=== PATIENT | female | born 1940 | race Caucasian/White ===

== ENCOUNTER → 2017-08-12 | Outpatient (CLI) | payer MEDICARE | END | disposition home or self-care (01) | LOC: SHCH 13:20 | PROVIDERS: ATTEND Internal Medicine Cardiovascular Disease | DX: I50.9 Heart failure, unspecified (principal); I42.9 Cardiomyopathy, unspecified | CPT/HCPCS: 93306 ==

== ENCOUNTER → 2017-08-29 | Outpatient (CLI) | payer OTHER | END | disposition home or self-care (01) | LOC: OIH 14:13 | PROVIDERS: ATTEND Internal Medicine Cardiovascular Disease | DX: Z13.6 Encounter for screening for cardiovascular disorders (principal) | CPT/HCPCS: 75571 ==

== ENCOUNTER → 2018-05-27 | Outpatient (CLI) | payer MEDICARE ==
[~2018-05-27] MED LIST: IOHEXOL-350 75 ML VIAL IV ONE
== END | disposition home or self-care (01) ==
LOC: RAH 05-14 09:56
PROVIDERS: ATTEND Family Medicine
DX: R06.02 Shortness of breath (principal)
CPT/HCPCS: 71275; Q9967

== ENCOUNTER → 2019-01-19 | Outpatient (CLI) | payer MEDICARE | END | disposition home or self-care (01) | LOC: SHCH 08:19 | PROVIDERS: ATTEND Internal Medicine Cardiovascular Disease | DX: I08.3 Combined rheumatic disorders of mitral, aortic and tricuspid valves (principal) | CPT/HCPCS: 93306 ==

== ENCOUNTER 2021-05-31 09:00 | Inpatient (IN) | payer MEDICARE ==
[~2021-05-31] VITALS: Ht 160 cm; Wt 78.3 kg
[2021-05-31 10:56] LABS: APPEARANCE,URINE Clear (CLEAR); BILIRUBIN,URINE Negative (NEGATIVE); COLOR,URINE Yellow (YELLOW); GLUCOSE, URINE (UA) Negative (NEGATIVE); KETONES,URINE Negative (NEGATIVE); LEUKOCYTE ESTERASE ,URINE Moderate (NEGATIVE); NITRATE,URINE Negative (NEGATIVE); OCCULT BLOOD,URINE Nonhemolyzed Trace (NEGATIVE); PROTEIN,URINE Negative (NEGATIVE)
[2021-05-31 11:01] LABS: BASOPHILS % (AUTO) 0.7 % (0.0-5.0); EOSINOPHILS % (AUTO) 2.2 % (0.0-8.0); HEMATOCRIT 34.5 % (36-48); LYMPHOCYTES % (AUTO) 30.7 % (21.0-51.0); MEAN CORPUSCULAR HEMOGLOBIN 30.7 pg (27.0-33.0); MEAN CORPUSCULAR HGB CONC 33.3 g/dL (32.0-36.0); MEAN CORPUSCULAR VOLUME 92.2 fL (79-99); MONOCYTES % (AUTO) 9.8 % (3.0-13.0); NEUTROPHILS % (AUTO) 55.1 % (40.0-77.0); PLATELET COUNT (AUTO) 241 K/uL (130-400); RED BLOOD CELL COUNT(AUTO) 3.74 MIL/uL (4.00-5.50); RED CELL DISTRIBUTION WIDTH 12.7 % (11.0-15.5); WHITE BLOOD COUNT (AUTO) 4.6 K/uL (4.8-10.8)
[2021-05-31 11:01] LABS: BACTERIA,URINE Rare /HPF (None Seen); RBC,URINE 0-1 /HPF (0-1); SQUAMOUS EPITHELIAL CELL,UR Rare /HPF (0-2)
[2021-05-31 11:13] LABS: CREATININE 1.4 mg/dL (0.5-1.5); POTASSIUM 4.2 mmol/L (3.5-5.1)
[2021-05-31 11:24] LABS: INR 1.04 (0.85-1.15); PROTHROMBIN TIME 11.3 SEC (9.6-11.6)
[2021-06-04] VITALS (25 sets, daily range): BP systolic 128–168; BP diastolic 60–89
[2021-06-04] MEDS: CEFAZOLIN SODIUM 2 GM VIAL IV SCH ×3 (05:00→18:13)
[2021-06-04] MEDS ORDERED: CEFAZOLIN SODIUM 1 GM VIAL ONE ×2 (07:43→08:32)
[2021-06-04] MEDS ORDERED: TRANEXAMIC ACID 1000MG/10ML ONE (07:43)
[2021-06-04] MEDS ORDERED: ASCO1CAP5 PO (08:09)
[2021-06-04] MEDS ORDERED: ROTI1PAT10 TD (08:09)
[2021-06-04] MEDS ORDERED: DOCU-133 PO (08:09)
[2021-06-04] MEDS ORDERED: DULO30CA52 PO (08:09)
[2021-06-04] MEDS ORDERED: CYAN50009 PO (08:09)
[2021-06-04] MEDS ORDERED: HYDR50TA PO (08:09)
[2021-06-04] MEDS ORDERED: FISH1CAP50 PO (08:09)
[2021-06-04] MEDS ORDERED: LOSA100T58 PO (08:09)
[2021-06-04] MEDS ORDERED: CHOL100046 PO (08:09)
[2021-06-04] MEDS ORDERED: LEVO75CA5 PO (08:09)
[2021-06-04] MEDS ORDERED: ESOM20CA39 PO (08:09)
[2021-06-04] MEDS ORDERED: SPIR25TA6 PO (08:09)
[2021-06-04] MEDS ORDERED: APIX5TAB PO (08:11)
[2021-06-04] MEDS ORDERED: LACTATED RINGERS 1000ML 1,000 ML IV ONE (08:32)
[2021-06-04] MEDS ORDERED: ACETAMINOPHEN 500 MG TABLET ONE (08:35)
[2021-06-04] MEDS ORDERED: CELECOXIB 200 MG CAP ONE ×2 (08:36→19:13)
[2021-06-04] MEDS ORDERED: OXYCODONE HCL 10 MG TAB.SR.12H PO ONE (09:04)
[2021-06-04] MEDS ORDERED: LIDOCAINE PF 100MG/5ML (2%) SYRINGE 5ML ONE (09:15)
[2021-06-04] MEDS ORDERED: PROPOFOL 10 MG/ML 20ML VIAL IV ONE (09:15)
[2021-06-04] MEDS ORDERED: SUCCINYLCHOLINE CHLORIDE 20 MG/ML 10 ML VIAL ONE (09:15)
[2021-06-04] MEDS ORDERED: MIDAZOLAM HCL 1 MG/ML 2ML VIAL ONE (09:15)
[2021-06-04] MEDS ORDERED: ROCURONIUM 10MG/1ML SYR 10 MG/ML ML ONE (09:22)
[2021-06-04] MEDS ORDERED: NEOSTIGMINE 5MG/5ML SYR IV ONE (11:16)
[2021-06-04] MEDS ORDERED: ONDANSETRON 4MG INJ ONE (11:16)
[2021-06-04] MEDS ORDERED: GLYCOPYRROLATE 1 MG/5 ML SYRINGE ONE (11:16)
[2021-06-04] MEDS ORDERED: LIDOCAINE HCL-MPF 1% 2ML VIAL IV PRN (11:30)
[2021-06-04] MEDS ORDERED: TEMAZEPAM 15 MG CAPSULE PO PRN (11:30)
[2021-06-04] MEDS ORDERED: OXYCODONE HCL 5 MG TAB PO PRN (11:30)
[2021-06-04] MEDS: ACETAMINOPHEN 500 MG TABLET PO SCH ×2 (11:30→20:05)
[2021-06-04] MEDS ORDERED: FERROUS FUMARATE 324 MG TABLET PO PRN (11:30)
[2021-06-04] MEDS ORDERED: DiphenhydrAMINE HCL 50 MG/ML VIAL IVP PRN (11:30)
[2021-06-04] MEDS ORDERED: CALCIUM CARB 500MG PO PRN (11:30)
[2021-06-04] MEDS ORDERED: 0.9%NACL 1000ML 1,000 ML IV SCH (11:30)
[2021-06-04] MEDS ORDERED: POTASSIUM CHLORIDE 10% ELIXIR 20 MEQ/15 ML UDCUP PO PRN (11:30)
[2021-06-04] MEDS ORDERED: KCL 20 MEQ ERTAB PO PRN (11:30)
[2021-06-04] MEDS ORDERED: TRAMADOL HCL 50 MG TABLET PO PRN (11:30)
[2021-06-04] MEDS ORDERED: POTASSIUM CHLORIDE 20MEQ/100ML 100 ML IV PRN (11:30)
[2021-06-04] MEDS ORDERED: FENTANYL CITRATE PF 50 MCG/1 ML 2ML VIAL ONE (11:54)
[2021-06-04] MEDS ORDERED: MEPERIDINE-PF 25 MG/ML SYG ONE ×2 (12:31→12:43)
[2021-06-04] MEDS: OXYCODONE HCL 5 MG TAB PO PRN (13:46)
[2021-06-04] MEDS: CEFAZOLIN SODIUM 1 GM VIAL IVP SCH (16:42)
[2021-06-04] MEDS ORDERED: SULFAMETHOX-TMP DS 800/160 TAB ONE (19:13)
[2021-06-04] MEDS ORDERED: DULOXETINE HCL 30 MG CAP ONE (19:13)
[2021-06-04] MEDS ORDERED: PREGABALIN 25 MG CAP ONE (19:14)
[2021-06-04] MEDS ORDERED: FISH OIL 1000 MG/CAP ONE (19:14)
[2021-06-04] MEDS ORDERED: DOCUSATE SODIUM 100 MG CAP PO ONE (19:14)
[2021-06-04] MEDS: DOCUSATE SODIUM 100 MG CAP PO SCH (20:04)
[2021-06-04] MEDS: SULFAMETHOX-TMP DS 800/160 TAB PO SCH (20:04)
[2021-06-04] MEDS: PREGABALIN 25 MG CAP PO SCH (20:04)
[2021-06-04] MEDS: CELECOXIB 200 MG CAP PO SCH (20:05)
[2021-06-04] MEDS: FISH OIL 1000 MG/CAP PO SCH (20:05)
[2021-06-04] MEDS: DULOXETINE HCL 30 MG CAP PO SCH (20:05)
[2021-06-04] MEDS ORDERED: APIXABAN 5 MG TABLET PO SCH (21:00)
[2021-06-05] MEDS: OXYCODONE HCL 5 MG TAB PO PRN ×5 (00:26→20:07)
[2021-06-05] MEDS: CEFAZOLIN SODIUM 1 GM VIAL IVP SCH (00:26)
[2021-06-05] MEDS ORDERED: CEFAZOLIN SODIUM 1 GM VIAL ONE (02:54)
[2021-06-05] MEDS: ACETAMINOPHEN 500 MG TABLET PO SCH ×3 (03:46→20:05)
[2021-06-05 04:00] VITALS: BP 120/61
[2021-06-05 06:01] LABS: HEMATOCRIT 31.4 % (36-48); MEAN CORPUSCULAR HEMOGLOBIN 30.3 pg (27.0-33.0); MEAN CORPUSCULAR HGB CONC 31.8 g/dL (32.0-36.0); MEAN CORPUSCULAR VOLUME 95.2 fL (79-99); RED BLOOD CELL COUNT(AUTO) 3.3 MIL/uL (4.00-5.50); WHITE BLOOD COUNT (AUTO) 7.6 K/uL (4.8-10.8)
[2021-06-05] MEDS: LEVOTHYROXINE 75 MCG TABLET PO SCH (06:07)
[2021-06-05 06:14] LABS: CREATININE 1.6 mg/dL (0.5-1.5); POTASSIUM 4.3 mmol/L (3.5-5.1)
[2021-06-05 07:25] VITALS: BP 120/61
[2021-06-05] MEDS: POLYETHYLENE GLYCOL 3350 17 GM POWD.PACK PO SCH (08:06)
[2021-06-05] MEDS: HYDROCHLOROTHIAZIDE 25 MG TABLET PO SCH (08:07)
[2021-06-05] MEDS: CELECOXIB 200 MG CAP PO SCH ×2 (08:07→20:05)
[2021-06-05] MEDS: CYANOCOBALAMIN (VITAMIN B-12) 1,000 MCG TABLET PO SCH (08:08)
[2021-06-05] MEDS: PREGABALIN 25 MG CAP PO SCH ×2 (08:08→20:07)
[2021-06-05] MEDS: SULFAMETHOX-TMP DS 800/160 TAB PO SCH ×2 (08:09→20:07)
[2021-06-05] MEDS: LOSARTAN 100 MG TABLET PO SCH (08:09)
[2021-06-05] MEDS: APIXABAN 5 MG TABLET PO SCH (08:09)
[2021-06-05] MEDS: PANTOPRAZOLE 40 MG TAB DR PO SCH (08:09)
[2021-06-05] MEDS: SPIRONOLACTONE 25 MG TAB PO SCH (08:09)
[2021-06-05] MEDS: **HM**(Cholecalciferol (Vitamin D3) (Vitamin D3) 50 MCG PO SCH (08:42)
[2021-06-05] MEDS: ASCORBIC ACID PO SCH (08:42)
[2021-06-05] MEDS: COLLAGEN HYDR PO SCH (08:42)
[2021-06-05] MEDS: ROTIGOTINE TD SCH (08:42)
[2021-06-05 11:00] VITALS: BP 134/59
[2021-06-05] MEDS: ONDANSETRON 4MG INJ IVP PRN ×2 (11:38→15:21)
[2021-06-05 15:30] VITALS: BP 150/68
[2021-06-05] MEDS ORDERED: PHENAZOPYRIDINE HCL 200 MG TABLET PO PRN (16:00)
[2021-06-05 20:00] VITALS: BP 174/72
[2021-06-05] MEDS: FISH OIL 1000 MG/CAP PO SCH (20:05)
[2021-06-05] MEDS: DOCUSATE SODIUM 100 MG CAP PO SCH (20:05)
[2021-06-05] MEDS: DULOXETINE HCL 30 MG CAP PO SCH (20:07)
[2021-06-06] VITALS: BP 135/56
[2021-06-06] MEDS: OXYCODONE HCL 5 MG TAB PO PRN ×4 (00:08→17:19)
[2021-06-06] MEDS: CEFAZOLIN SODIUM 2 GM VIAL IV SCH (00:37)
[2021-06-06] MEDS: ACETAMINOPHEN 500 MG TABLET PO SCH ×3 (03:30→12:45)
[2021-06-06] MEDS: LEVOTHYROXINE 75 MCG TABLET PO SCH (05:20)
[2021-06-06 05:35] VITALS: BP 168/66
[2021-06-06 08:08] VITALS: BP 129/64
[2021-06-06] MEDS: PANTOPRAZOLE 40 MG TAB DR PO SCH (08:51)
[2021-06-06] MEDS: POLYETHYLENE GLYCOL 3350 17 GM POWD.PACK PO SCH (08:51)
[2021-06-06] MEDS: CELECOXIB 200 MG CAP PO SCH (08:51)
[2021-06-06] MEDS: APIXABAN 5 MG TABLET PO SCH (08:51)
[2021-06-06] MEDS: SULFAMETHOX-TMP DS 800/160 TAB PO SCH (08:52)
[2021-06-06] MEDS: PREGABALIN 25 MG CAP PO SCH (08:52)
[2021-06-06] MEDS: CYANOCOBALAMIN (VITAMIN B-12) 1,000 MCG TABLET PO SCH (08:52)
[2021-06-06] MEDS ORDERED: HYDR-4060 PO (08:56)
[2021-06-06] MEDS: COLLAGEN HYDR PO SCH (08:57)
[2021-06-06] MEDS: ASCORBIC ACID PO SCH (08:57)
[2021-06-06] MEDS: **HM**(Cholecalciferol (Vitamin D3) (Vitamin D3) 50 MCG PO SCH (08:57)
[2021-06-06] MEDS: HYDROCHLOROTHIAZIDE 25 MG TABLET PO SCH (09:00)
[2021-06-06] MEDS: LOSARTAN 100 MG TABLET PO SCH (09:00)
[2021-06-06] MEDS: SPIRONOLACTONE 25 MG TAB PO SCH (09:00)
[2021-06-06] MEDS: ROTIGOTINE TD SCH (09:00)
[2021-06-06 10:57] VITALS: BP 129/77
[2021-06-06 15:58] VITALS: BP 129/76
[2021-06-06] MEDS ORDERED: HYDR-4068 PO (17:06)
[2021-06-06] MEDS ORDERED: Sulfamethox-Tmp Ds 800/160 Tab PO (17:16)
== END 2021-06-06 19:24 | disposition home health service (06) | DRG 470 ==
LOC: DAHIP 06-04 07:23 → OBSVTOIN 06-04 07:23 → 4CH 06-04 13:27 → 3BH 06-05 05:22
PROVIDERS: ADMIT Orthopaedic Surgery; ATTEND Orthopaedic Surgery
PROC: 3E0T33Z Introduction of Anti-inflammatory into Peripheral Nerves and Plexi, Percutaneous Approach (ICD-10-PCS; 2021-06-04)
PROC: 0SRC0J9 Replacement of Right Knee Joint with Synthetic Substitute, Cemented, Open Approach (ICD-10-PCS; principal; 2021-06-04 09:35)
PROC: 3E0T3BZ Introduction of Anesthetic Agent into Peripheral Nerves and Plexi, Percutaneous Approach (ICD-10-PCS; 2021-06-04 09:35)
DX: M17.11 Unilateral primary osteoarthritis, right knee (principal); N39.0 Urinary tract infection, site not specified; I47.1 Supraventricular tachycardia; Z20.822 Contact with and (suspected) exposure to COVID-19; I25.10 Atherosclerotic heart disease of native coronary artery without angina pectoris; E78.5 Hyperlipidemia, unspecified; E03.9 Hypothyroidism, unspecified; G25.81 Restless legs syndrome; I10 Essential (primary) hypertension; G89.29 Other chronic pain; E11.9 Type 2 diabetes mellitus without complications; I48.0 Paroxysmal atrial fibrillation; K21.9 Gastro-esophageal reflux disease without esophagitis; E66.9 Obesity, unspecified; Z68.30 Body mass index [BMI] 30.0-30.9, adult; Q96.9 Turner's syndrome, unspecified; Z98.82 Breast implant status; Z85.3 Personal history of malignant neoplasm of breast; Z79.01 Long term (current) use of anticoagulants; Z90.710 Acquired absence of both cervix and uterus; Z88.8 Allergy status to other drugs, medicaments and biological substances; Z82.3 Family history of stroke; Z80.42 Family history of malignant neoplasm of prostate
CPT/HCPCS: 36415; 80048; 81001; 85025; 85027; 85610; 87077; 87088; 87186; 87635; 87641; 93005; 97039; G0378; J0330; J0690; J2001; J2175; J2250; J2405; J2704; J2710; J3010; J3490; J7120

== ENCOUNTER → 2021-06-20 | Outpatient (CLI) | payer MEDICARE ==
[~2021-06-20] MED LIST changes: +ALBUTEROL 0.083% 2.5 MG/3 ML INH IH ONE; +APIX5TAB PO; +ASCO1CAP5 PO; +CHOL100046 PO; +CYAN50009 PO; +DOCU-133 PO; +DULO30CA52 PO; +ESOM20CA39 PO; +FISH1CAP50 PO; +HYDR-4068 PO; +HYDR50TA PO; -IOHEXOL-350 75 ML VIAL IV ONE; +LEVO75CA5 PO; +LOSA100T58 PO; +ROTI1PAT10 TD; +SPIR25TA6 PO; +Sulfamethox-Tmp Ds 800/160 Tab PO
== END | disposition home or self-care (01) ==
LOC: RESP 13:25
PROVIDERS: ATTEND Internal Medicine Cardiovascular Disease
DX: R06.00 Dyspnea, unspecified (principal)
CPT/HCPCS: 94060; 94727; 94729

== ENCOUNTER → 2022-01-02 | Outpatient (CLI) | payer MEDICARE ==
[~2022-01-02] MED LIST changes: -ALBUTEROL 0.083% 2.5 MG/3 ML INH IH ONE
== END | disposition home or self-care (01) ==
LOC: RAH 10:55
PROVIDERS: ATTEND Student in an Organized Health Care Education/Training Program
DX: M51.36 Other intervertebral disc degeneration, lumbar region (principal); M54.50 Low back pain, unspecified
CPT/HCPCS: 72148

== ENCOUNTER → 2022-06-05 | Outpatient (CLI) | payer MEDICARE | END | disposition home or self-care (01) | LOC: SLP 21:48 | PROVIDERS: ATTEND Internal Medicine Cardiovascular Disease | DX: G47.33 Obstructive sleep apnea (adult) (pediatric) (principal) | CPT/HCPCS: 95810 ==

== ENCOUNTER → 2022-07-29 | Outpatient (CLI) | payer MEDICARE ==
[~2022-07-29] MED LIST changes: +CHOL125C7 PO; +CYAN500T46 PO; +MAGN250T10 PO
== END | disposition home or self-care (01) ==
LOC: RAH 14:03
PROVIDERS: ATTEND Student in an Organized Health Care Education/Training Program
DX: S83.242A Other tear of medial meniscus, current injury, left knee, initial encounter (principal); S83.512A Sprain of anterior cruciate ligament of left knee, initial encounter; M71.22 Synovial cyst of popliteal space [Baker], left knee; M25.462 Effusion, left knee; X58.XXXA Exposure to other specified factors, initial encounter; Y93.89 Activity, other specified; Y92.89 Other specified places as the place of occurrence of the external cause; Y99.8 Other external cause status
CPT/HCPCS: 73721

== ENCOUNTER → 2022-10-08 | Outpatient (CLI) | payer MEDICARE ==
[~2022-10-08] MED LIST changes: -CHOL100046 PO; -CYAN50009 PO; -FISH1CAP50 PO; -LOSA100T58 PO; +LOSA100T59 PO; +NIRM1TAB5 PO; -Sulfamethox-Tmp Ds 800/160 Tab PO
[2022-10-08 14:36] LABS: CREATININE 1.3 mg/dL (0.5-1.5); POTASSIUM 4.1 mmol/L (3.5-5.1)
== END | disposition home or self-care (01) ==
LOC: LAB 13:24
PROVIDERS: ATTEND Internal Medicine Cardiovascular Disease
DX: I10 Essential (primary) hypertension (principal)
CPT/HCPCS: 36415; 80048

== ENCOUNTER → 2022-10-17 | Outpatient (CLI) | payer MEDICARE ==
[2022-10-17 16:18] LABS: BASOPHILS % (AUTO) 0.7 % (0.0-5.0); EOSINOPHILS % (AUTO) 2.1 % (0.0-8.0); HEMATOCRIT 33.2 % (36-48); LYMPHOCYTES % (AUTO) 27.8 % (21.0-51.0); MEAN CORPUSCULAR HGB CONC 32.5 g/dL (32.0-36.0); MEAN CORPUSCULAR VOLUME 95.4 fL (79-99); MONOCYTES % (AUTO) 9.5 % (3.0-13.0); NEUTROPHILS % (AUTO) 58.9 % (40.0-77.0); PLATELET COUNT (AUTO) 236 K/uL (130-400); RED BLOOD CELL COUNT(AUTO) 3.48 MIL/uL (4.00-5.50); RED CELL DISTRIBUTION WIDTH 12.9 % (11.0-15.5); WHITE BLOOD COUNT (AUTO) 5.8 K/uL (4.8-10.8)
[2022-10-17 16:43] LABS: T4 (THYROXINE) 9.9 ug/dL (4.7-13.3); THYROID STIMULATING HORMONE 0.22 uIU/mL (0.36-3.74)
== END | disposition home or self-care (01) ==
LOC: LAB 15:12
PROVIDERS: ATTEND Internal Medicine Cardiovascular Disease
DX: E03.9 Hypothyroidism, unspecified (principal); Z79.899 Other long term (current) drug therapy
CPT/HCPCS: 36415; 82652; 84436; 84443; 84479; 85025

== ENCOUNTER → 2022-11-12 | Outpatient (CLI) | payer MEDICARE ==
[2022-11-12 12:45] LABS: THYROID STIMULATING HORMONE 0.5 uIU/mL (0.36-3.74)
== END | disposition home or self-care (01) ==
LOC: LAB 11:06
PROVIDERS: ATTEND Internal Medicine Cardiovascular Disease
DX: E03.9 Hypothyroidism, unspecified (principal)
CPT/HCPCS: 36415; 80061; 84443

== ENCOUNTER → 2023-07-09 | Outpatient (CLI) | payer MEDICARE ==
[2023-07-09 16:34] LABS: CREATININE 1.6 mg/dL (0.5-1.5); MAGNESIUM 1.9 mg/dL (1.80-2.40); POTASSIUM 4.8 mmol/L (3.5-5.1)
== END | disposition home or self-care (01) ==
LOC: LAB 13:03
PROVIDERS: ATTEND Internal Medicine Cardiovascular Disease
DX: I10 Essential (primary) hypertension (principal)
CPT/HCPCS: 36415; 80048; 83735

== ENCOUNTER → 2024-12-01 | Outpatient (CLI) | payer MEDICARE ==
[~2024-12-01] MED LIST changes: -ESOM20CA39 PO; +ESOM20CA51 PO; -LEVO75CA5 PO; +LEVO75CA6 PO
--- NOTE | 2024-12-02 12:11 | HMCIMG ---
EXAM: MR Cervical Spine without intravenous contrast. CLINICAL HISTORY: Spinal canal stenosis, cervical region TECHNIQUE: Magnetic resonance images of the cervical spine in multiple planes. CONTRAST: None. COMPARISON: None. FINDINGS: The imaged posterior fossa is unremarkable. The craniocervical junction is intact. No acute fracture. Straightening of cervical lordotic curvature with mild dextroscoliosis. Multilevel disc desiccation in the cervical spine. Severe reduction in the disc height with type II Modic changes at the C3-4, C4-5, C5-6, and C6-7 levels. Alignment deformity is seen in the cervical spine at C3-4 and C4-5 levels. Normal marrow signal of the vertebrae. No abnormal signal involves the cervical cord. No extra-axial masses. The surrounding soft tissues are unremarkable. 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 C2-3: 5 mm right paracentral disc extrusion. Moderate to severe bilateral facet joint arthropathy and ligamentum flavum hypertrophy. Moderate to severe spinal canal stenosis with focal compression on the cervical cord. C3-4: 3 mm circumferential disc protrusion. Moderate to severe bilateral neural foraminal narrowing with impingement of bilateral exiting nerve roots. Moderate prominence of bilateral uncovertebral osteophytes. Moderate to severe spinal canal stenosis with compression on the cervical cord. Moderate to severe bilateral facet arthropathy. C4-5: 3 mm circumferential disc bulge with bilateral mild prominence of uncovertebral osteophytes. Moderate to severe bilateral neural foraminal narrowing. Moderate to severe spinal canal stenosis. Moderate to severe bilateral facet arthropathy. C5-6: 4 mm circumferential and right foraminal disc protrusion with bilateral prominence of uncovertebral osteophytes. Moderate to severe right neural foraminal narrowing. Mild to moderate left neural foraminal narrowing. Impingement of the right exiting nerve root. Moderate to severe spinal canal stenosis with compression on the cervical cord. Moderate to severe bilateral facet arthropathy. C6-7: 4 mm circumferential disc protrusion with bilateral mild prominence of uncovertebral osteophytes. Mild to moderate bilateral neural foraminal narrowing. Mild spinal canal stenosis. C7-T1: 1 mm left paracentral disc bulge. No neural foraminal, lateral recess, or spinal canal stenosis. IMPRESSION Multilevel degenerative disc disease in the cervical spine, most pronounced at the C2-3, C3-4, C4-5, and C5-6 levels. Moderate to severe spinal canal stenosis with compression of the underlying cervical cord at the C2-3, C3-4, C4-5, and C5-6 levels. Multilevel facet joint arthropathy with ligamentum flavum hypertrophy. No acute bony injury. /[place]
== END | disposition home or self-care (01) ==
LOC: RAH 11:22
PROVIDERS: ATTEND Physical Medicine & Rehabilitation
DX: M50.321 Other cervical disc degeneration at C4-C5 level (principal); M50.31 Other cervical disc degeneration, high cervical region; M50.322 Other cervical disc degeneration at C5-C6 level; M50.21 Other cervical disc displacement, high cervical region; M50.222 Other cervical disc displacement at C5-C6 level; M50.223 Other cervical disc displacement at C6-C7 level; M50.33 Other cervical disc degeneration, cervicothoracic region; M47.812 Spondylosis without myelopathy or radiculopathy, cervical region; M25.78 Osteophyte, vertebrae; M48.02 Spinal stenosis, cervical region; M43.8X2 Other specified deforming dorsopathies, cervical region; M41.82 Other forms of scoliosis, cervical region; R29.2 Abnormal reflex
CPT/HCPCS: 72141